=== PATIENT | female | born 2000 | race Caucasian/White ===

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

== ENCOUNTER 2020-06-02 12:00 | Emergency (ER) | payer MEDICAID, SELFPAY | END 2020-06-02 12:22 | disposition home or self-care (01) | LOC: BURERS 12:00 | DX: R21 Rash and other nonspecific skin eruption (principal); L03.115 Cellulitis of right lower limb; F17.290 Nicotine dependence, other tobacco product, uncomplicated | CPT/HCPCS: 99283 ==

== ENCOUNTER 2023-03-03 15:13 | Emergency (ER) | payer OTHER, SELFPAY | END 2023-03-03 15:40 | disposition home or self-care (01) | LOC: BURERS 15:13 | DX: J01.90 Acute sinusitis, unspecified (principal); F17.290 Nicotine dependence, other tobacco product, uncomplicated | CPT/HCPCS: 99282 ==

== ENCOUNTER 2024-07-22 21:04 | Emergency (ER) | payer OTHER, SELFPAY ==
[2024-07-22] MEDS ORDERED: diphenhydrAMINE 50 MG/ML VIAL ONE (21:21)
[2024-07-22] MEDS ORDERED: Dexamethasone 10 MG/ML VIAL ONE (21:21)
[2024-07-22] MEDS ORDERED: Famotidine/PF 20 mg/2ml Vial ONE (21:21)
[2024-07-22] MEDS ORDERED: EPINEPHrine 1 MG/10 ML Abboject SYRINGE ONE (21:21)
[2024-07-22] MEDS ORDERED: Ondansetron PF 4 MG/2 ML Vial ONE (21:27)
== END 2024-07-22 23:38 | disposition home or self-care (01) ==
LOC: BURERS 21:04
DX: T78.2XXA Anaphylactic shock, unspecified, initial encounter (principal); F17.290 Nicotine dependence, other tobacco product, uncomplicated
CPT/HCPCS: 93005; 96361; 96372; 96374; 96375; J0171; J1100; J1200; J2405; J3490